=== PATIENT | male | born 1960 | race African-American/Black ===

== ENCOUNTER 2016-03-24 12:20 | Emergency (ER) | payer OTHER ==
[~2016-03-24] VITALS: Ht 175.3 cm; Wt 80.0 kg
[~2016-03-24 12:20] MED LIST: DILT60TA PO; HYDR50TA3 PO; OMEP20TA PO; TYLETAB34 PO
[2016-03-24 12:22] VITALS: BP 145/74; PULSE 84; RESP 20; TEMP 97.5; O2SAT 97
--- NOTE | 2016-03-24 13:02 | PD ---
HPI Chief Complaint: Complaint Time Seen by Provider: 13:02 Travel History International Travel<30 days: No Contact w/Intl Traveler<30days: No Traveled to known affect area: No History of Present Illness HPI 55-year-old male presents to the emergency department for evaluation of burning with urination and urethral discharge that began last night. The patient states that he is monogamous and only has intercourse with his . Despite the fact that he is monogamous he is concerned that he may have a sexual transmitted infection. He states that he had similar symptoms in the past, in fact, just 6 months ago was seen in our ED for the same complaint. States that he was negative for any ST at that time but that he received the antibiotics and his symptoms went away. He denies any fever, chills, nausea, vomiting, abdominal pain, scrotal or testicular pain. No other complaints. PFSH Past Medical History Heart Rhythm Problems: Yes (heart murmur) Cardiovascular Problems: Yes (HTN) Diminished Hearing: No Gastrointestinal Disorders: Yes GERD: Yes Hypertension: Yes Respiratory: Yes Past Surgical History Other Surgery: No Social History Alcohol Use: Yes (social) Tobacco Use: Yes (social) Substance Use: No Allergies-Medications (Allergen,Severity, Reaction): Coded Allergies: Lisinopril (Verified Allergy, Severe, ANGIOEDEMA, 12/24/15) Reported Meds & Prescriptions Reported Meds & Active Scripts Active Cipro (Ciprofloxacin HCl) 500 Mg Tab 500 Mg PO BID 7 Days Tylenol-Codeine #3 (Acetaminophen-Codeine) 300-30 mg Tab 1 Tab PO Q6HR PRN Reported Hydrochlorothiazide 50 Mg Tab 50 Mg PO DAILY Diltiazem (Diltiazem HCl) 60 Mg Tab 60 Mg PO DAILY Omeprazole 20 Mg Tab 20 Mg PO DAILY Review of Systems Except as stated in HPI: all other systems reviewed are Neg Physical Exam Narrative GENERAL: Well-nourished and well-developed pleasant male patient in no acute distress who is nontoxic appearing. SKIN: Warm and dry. HEAD: Normocephalic and atraumatic. EYES: No injection, drainage, or hyphema noted. PERRLA. EOMI. ENT: No nasal drainage noted. Oropharynx is clear. NECK: Supple and the trachea is midline. CARDIOVASCULAR: Regular rate and rhythm. RESPIRATORY: Breath sounds are equal bilaterally with no accessory muscle use, wheezing, rhonchi, or crackles. GASTROINTESTINAL: Abdomen is soft, non-tender, and nondistended. GENITOURINARY: Circumcised. Testes descended bilaterally without evidence of rotation. No tenderness to palpation of the epididymis or scrotum. No lesions or erythema. Very small amount of white urethral discharge. Performed in the presence of Mitra BURLESON. NEUROLOGICAL: Awake, alert, and oriented. Normal speech and gait. Cranial nerves are grossly intact. Data Data Last Documented VS Vital Signs Date Time Temp Pulse Resp B/P Pulse Ox O2 Delivery O2 Flow Rate FiO2 03/24/16 12:22 97.5 84 20 145/74 97 Room Air Orders Urinalysis - C+S If Indicated (03/24/16 13:01) Gc And Chlamydia Pcr (03/24/16 13:01) Urine Culture (03/24/16 13:10) Labs Laboratory Tests Test 03/24/16 13:10 Urine Color YELLOW Urine Turbidity CLEAR Urine pH 5.5 Urine Specific [place] 1.024 Urine Protein TRACE mg/dL Urine Glucose (UA) NEG mg/dL Urine Ketones NEG mg/dL Urine Occult Blood NEG Urine Nitrite NEG Urine Bilirubin NEG Urine Urobilinogen LESS THAN 2.0 MG/DL Urine Leukocyte Esterase SMALL Urine RBC 3 /hpf Urine WBC 11 /hpf Urine Amorphous Sediment RARE Urine Bacteria RARE /hpf Urine Mucus FEW /lpf Microscopic Urinalysis Comment CULTURE INDICATED MDM Medical Decision Making Medical Screen Exam Complete: Yes Emergency Medical Condition: Yes Differential Diagnosis Dysuria versus urinary tract infection versus STI Narrative Course 55-year-old male presents to the emergency department for evaluation of burning with urination and urethral discharge for 1 day. Patient is afebrile, vital signs are stable. I did review the EMR which shows the patient has been seen here twice in the past for the same exact complaint and both times was negative for gonorrhea or chlamydia. I discussed this with the patient, who is also reporting that he is monogamous, and recommended to him that we follow-up on the gonorrhea and chlamydia PCR rather than treat prophylactically. The patient however is vehemently requesting the antibiotics that treat gonorrhea and Chlamydia. Therefore we will treat prophylactically with Zithromax and Rocephin. Urinalysis shows small leukocyte esterase, 11 white blood cells, rare bacteria and few mucus. He'll be discharged with Cipro. Diagnosis Primary Impression: Dysuria Additional Impression: Penile discharge Referrals: Primary Care Physician Patient Instructions: General Instructions Additional Instructions: Take medication as prescribed with food and a full glass of water. Follow-up with your Primary Care Physician. Return to the ED for any acute worsening of symptoms. Med/Other Pt SpecificInfo: Prescription(s) given Scripts Ciprofloxacin (Cipro)500 Mg [id number] Mg PO BID 7 Days Ref 0 Prov:Jaime Sommer MD 03/24/16 Disposition: 01 DISCHARGE HOME Condition: Stable Irma Wang Mar 24, 2016 13:02
[2016-03-24 13:33] LABS: BACTERIA, URINE RARE /hpf; BLOOD, URINE NEG (NEG); COMMENT (UR) CULTURE INDICATED; CULTURE IF INDICATED CULTURE INDICATED; GLUCOSE,URINE NEG (NEG); KETONE, URINE NEG (NEG); MUCUS URINE FEW /lpf (OCC); NITRITE,URINE NEG (NEG); PH, URINE 5.5 (5.0-8.5); URINE COLOR YELLOW (YELLW/STRAW)
[2016-03-24] MEDS ORDERED: CIPR-9 PO (13:46)
[2016-03-24] MEDS ORDERED: LIDOCAINE HCL 1% 50 ML VIAL XX ONE (14:00)
[2016-03-24] MEDS ORDERED: cefTRIAXone 250 MG VIAL IM ONE (14:00)
[2016-03-24] MEDS ORDERED: AZITHROMYCIN 250 MG TAB PO ONE (14:00)
[2016-03-24 16:34] LABS: CHLAMYDIA PCR NOT DETECTED (NOT DETECT); NEISSERIA PCR NOT DETECTED (NOT DETECT)
== END 2016-03-24 15:10 | disposition home or self-care (01) ==
LOC: NEPB 12:20
DX: R30.0 Dysuria (principal); R36.9 Urethral discharge, unspecified; I10 Essential (primary) hypertension; Z72.0 Tobacco use
CPT/HCPCS: 81001; 87086; 87491; 87591; 96372; 99283; J0696

== ENCOUNTER 2017-02-02 04:55 | Emergency (ER) | payer OTHER ==
[~2017-02-02] VITALS: Ht 175.3 cm; Wt 78.0 kg
[~2017-02-02 04:55] MED LIST changes: +ASPI81CH6 CHEW; -HYDR50TA3 PO; -OMEP20TA PO; +OMEP20TA93 PO; +SILD20TA11 PO; +TAMS0.4C4 PO; -TYLETAB34 PO
[2017-02-02 04:56] VITALS: BP 187/87; PULSE 87; RESP 16; TEMP 97.8; O2SAT 99
--- NOTE | 2017-02-02 05:26 | PD ---
HPI Chief Complaint: Back/ Neck Pain or Injury Time Seen by Provider: 05:10 Travel History International Travel<30 days: No Contact w/Intl Traveler<30days: No Traveled to known affect area: No History of Present Illness HPI This is a 56-year-old male with history of hypertension who presents for evaluation of neck pain radiating into the occiput. He has been suffering from neck pain for the past year. He has seen his primary care physician about this and he had an ultrasound the soft tissue of the neck on January 11 for evaluation of this issue. The ultrasound was normal. He reports over the past few days the pain has been worse and has been radiating to the occiput. The pain is a stiffness type of pain which is mainly produced with rotation of the neck. He has no pain when he sits still. He denies any global headache, blurred vision, slurred speech, focal weakness, numbness or tingling in the extremities. He denies any acute injuries. 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 He is not currently using any [id number]-vptolot medications for symptom relief. He has no other complaints at this time. PFSH Past Medical History Heart Rhythm Problems: Yes (heart murmur) Cardiovascular Problems: Yes (HTN) Diminished Hearing: No Gastrointestinal Disorders: Yes GERD: Yes Heparin Induced Thrombocytopen: No Hypertension: Yes Implanted Vascular Access Dvce: No Respiratory: Yes Past Surgical History Surgical History: No Previous Surgery Other Surgery: No Social History Alcohol Use: Yes (social) Tobacco Use: Yes (social) Substance Use: No Allergies-Medications (Allergen,Severity, Reaction): Coded Allergies: lisinopril (Unverified Allergy, Severe, ANGIOEDEMA, 02/02/17) Reported Meds & Prescriptions Reported Meds & Active Scripts Active Omeprazole 20 Mg Tab 20 Mg PO DAILY Diltiazem (Diltiazem HCl) 60 Mg Tab 60 Mg PO BID Reported Aspirin Low Dose (Aspirin) 81 Mg Chew 81 Mg CHEW DAILY Review of Systems Except as stated in HPI: all other systems reviewed are Neg Physical Exam Narrative GENERAL: Well-developed well-nourished male in no acute distress SKIN: Warm and dry. HEAD: Atraumatic. Normocephalic. EYES: Pupils equal and round. No scleral icterus. No injection or drainage. ENT: No nasal bleeding or discharge. Mucous membranes pink and moist. NECK: Trachea midline. No JVD. CARDIOVASCULAR: Regular rate and rhythm. No murmur appreciated. RESPIRATORY: No accessory muscle use. Clear to auscultation. Breath sounds equal bilaterally. GASTROINTESTINAL: Abdomen soft, non-tender, nondistended. Hepatic and splenic margins not palpable. MUSCULOSKELETAL: No obvious deformities. No clubbing. No cyanosis. No edema. There is some pain with rotation of the neck. NEUROLOGICAL: Awake and alert. No obvious cranial nerve deficits. Motor grossly within normal limits. Normal speech. PSYCHIATRIC: Appropriate mood and affect; insight and judgment normal. Data Data Last Documented VS Vital Signs Date Time Temp Pulse Resp B/P (MAP) Pulse Ox O2 Delivery O2 Flow Rate FiO2 02/02/17 04:56 97.8 87 16 187/87 (120) 99 Nasal Cannula Orders Orders Ct Cerv Spine W/O Contrast (02/02/17 ) Ct Brain W/O Iv Contrast(Rout) (02/02/17 ) Ketorolac Inj (Toradol Inj) (02/02/17 06:30) Ed Discharge Order (02/02/17 06:23) [facility] Medical Decision Making Medical Screen Exam Complete: Yes Emergency Medical Condition: Yes Medical Record Reviewed: Yes Differential Diagnosis Degenerative disc disease, herniated mucous pulposus, cervical artery dissection , subarachnoid hemorrhage, occipital neuralgia Narrative Course This is a 56-year-old male who has been suffering from neck pain for 1 year. Over the past few days the neck pain is worse and is now radiating into the occiput and this is unusual for him. Physical examination is reassuring with no acute neurologic deficits. CT the brain and cervical spine were performed. CT of the brain is normal. CT of the cervical spine reveals CONCLUSION: No acute bony findings in the cervical spine. Possible significant disc protrusion at least at the C3-4 level which would be better evaluated with MRI. He has no myelopathy or radiculopathy that would warrant emergent MRI. The patient be given a copy of his CT reports that he can follow up with his primary care physician for routine outpatient MRI imaging. He was given a dose of Toradol prior to discharge. Diagnosis Primary Impression: Chronic neck pain Additional Instructions: Take Tylenol or Motrin for pain. As discussed, follow-up with primary care physician to discuss outpatient MRI imaging the cervical spine. Return for any emergent medical conditions. Med/Other Pt SpecificInfo: No Change to Meds Disposition: 01 DISCHARGE HOME Condition: Stable Houston Goldstein Feb 02, 2017 05:26
--- NOTE | 2017-02-02 06:17 | RADRPT ---
EXAM DATE/TIME: 02/02/2017 05:27 [facility] COMPARISON: No previous studies available for comparison. INDICATIONS : Neck pain. RADIATION DOSE: 37.64 CTDIvol (mGy) MEDICAL HISTORY : Hypertension. SURGICAL HISTORY : None. ENCOUNTER: Initial ACUITY: 1 day PAIN SCALE: 8/10 LOCATION: neck TECHNIQUE: Volumetric scanning of the cervical spine was performed. Multiplanar reconstructions in the sagittal, coronal and oblique axial planes were performed. Using automated exposure control and adjustment o f the mA and/or kV according to patient size, radiation dose was kept as low as reasonably achievable to obtain optimal diagnostic quality images. DICOM format image data is available electronically f or review and comparison. FINDINGS: Cervical spine alignment is satisfactory. There is no evidence of cervical spine fracture. There are mild degenerative changes present with small endplate osteophytes present at several levels and poste rior facet arthropathy present at multiple levels. There is no evidence of bony canal or foraminal co mpromise. There is suggestion of significant disc protrusion central to right paracentral at C3-4 cou ld be better assessed with MRI when clinically appropriate. There is no evidence of paraspinal hemato ma. CONCLUSION: No acute bony findings in the cervical spine. Possible significant disc protrusion at least at the C3 -4 level which would be better evaluated with MRI. Goldy Chavez MD on February 02, 2017 at 6:11 Board Certified Radiologist. This report was verified electronically.
--- NOTE | 2017-02-02 06:17 | RADRPT ---
EXAM DATE/TIME: 02/02/2017 05:28 [facility] COMPARISON: No previous studies available for comparison. INDICATIONS : Cephalgia. RADIATION DOSE: 56.35 CTDIvol (mGy) MEDICAL HISTORY : Hypertension. SURGICAL HISTORY : None. ENCOUNTER: Initial ACUITY: 1 day PAIN SCALE: 5/10 LOCATION: cranial TECHNIQUE: Multiple contiguous axial images were obtained of the head. Using automated exposure control and adj ustment of the mA and/or kV according to patient size, radiation dose was kept as low as reasonably a chievable to obtain optimal diagnostic quality images. DICOM format image data is available electro nically for review and comparison. FINDINGS: CEREBRUM: The ventricles are normal for age. No evidence of midline shift, mass lesion, hemorrhage or acute in farction. No extra-axial fluid collections are seen. POSTERIOR FOSSA: The cerebellum and brainstem are intact. The 4th ventricle is midline. The cerebellopontine angle i s unremarkable. EXTRACRANIAL: The visualized portion of the orbits is intact. SKULL: The calvaria is intact. No evidence of skull fracture. CONCLUSION: Normal examination. Goldy Chavez MD on February 02, 2017 at 6:14 Board Certified Radiologist. This report was verified electronically.
[2017-02-02] MEDS ORDERED: KETOROLAC TROMETHAMINE 60 MG/2 ML (IM) VIAL IM ONE (06:30)
[2017-02-07] MEDS ORDERED: CYCL5TAB PO (12:05)
[2017-02-07] MEDS ORDERED: METH4PAK PO (12:05)
[2017-02-07] MEDS ORDERED: HYDR50TA3 PO (12:38)
== END 2017-02-02 06:41 | disposition home or self-care (01) ==
LOC: NEPD 04:55
DX: M54.2 Cervicalgia (principal); G89.29 Other chronic pain; I10 Essential (primary) hypertension; R01.1 Cardiac murmur, unspecified; K21.9 Gastro-esophageal reflux disease without esophagitis; Z72.0 Tobacco use; Z79.82 Long term (current) use of aspirin; Z79.899 Other long term (current) drug therapy
CPT/HCPCS: 70450; 72125; 96372; 99285; J1885